=== PATIENT | female | born 1955 | race African-American/Black ===

== ENCOUNTER 2018-01-14 19:26 | Emergency (ER) | payer MEDICARE ==
[~2018-01-14] VITALS: Ht 144.8 cm; Wt 73.5 kg
[2018-01-14] MEDS ORDERED: ACETAMINOPHEN 325 MG TAB ONE (21:04)
[2018-01-14 21:09] LABS: BASOPHILS # (AUTO) 0.1 (0.0-0.1); BASOPHILS % 0.4 % (0.0-1.0); EOSINOPHILS # (AUTO) 0.1 (0.0-0.4); HEMATOCRIT 41.6 % (34.2-44.1); HEMOGLOBIN 14.2 g/dL (12.0-16.0); LYMPHOCYTES # (AUTO) 1.9 (1.0-3.2); LYMPHOCYTES % 15.1 % (18.0-39.1); MEAN CORPUSCULAR HEMOGLOBIN 30.5 pg (28-32); MEAN CORPUSCULAR HGB CONC 34.1 g/dL (31-35); MEAN CORPUSCULAR VOLUME 89.5 fL (81-99); MONOCYTES # (AUTO) 0.8 (0.2-0.8); MONOCYTES % 5.9 % (4.4-11.3); NEUTROPHILS # (AUTO) 9.9 (2.1-6.9); NEUTROPHILS % 77.1 % (38.7-80.0); PLATELET COUNT 331 x10e3/uL (140-360); RED BLOOD COUNT 4.65 x10e6/uL (3.6-5.1); RED CELL DISTRIBUTION WIDTH 11.9 % (11.7-14.4)
[2018-01-14] MEDS ORDERED: ACETAMINOPHEN 325 MG TAB PO ONE (21:15)
[2018-01-14 21:26] LABS: ALBUMIN 4.9 g/dL (3.5-5.0); ALBUMIN/GLOBULIN RATIO 1.1 (0.8-2.0); ANION GAP 17.4 mmol/L (8-16); CALCIUM 10.5 mg/dL (8.4-10.2); CREATININE, SERUM 1.16 mg/dL (0.57-1.11); POTASSIUM 3.4 mmol/L (3.5-5.1)
[2018-01-14 21:28] LABS: BILIRUBIN,URINE NEGATIVE (NEGATIVE); CLARITY,URINE CLEAR (CLEAR); COLOR,URINE YELLOW (YELLOW); KETONES,URINE NEGATIVE (NEGATIVE); LEUKOCYTE ESTERASE ,URINE NEGATIVE (NEGATIVE); NITRITE,URINE NEGATIVE (NEGATIVE); PROTEIN,URINE DIPSTICK NEGATIVE (NEGATIVE); URINE UROBILINOGEN 0.2 mg/dL (0.2 - 1)
[2018-01-14] MEDS ORDERED: ONDANSETRON HCL INJ 2 MG/ML VIAL IV STA (21:41)
[2018-01-14] MEDS ORDERED: SODIUM CHLORIDE 0.9% 1000ML 1,000 ML IV STA (21:41)
[2018-01-14 21:44] LABS: BACTERIA,URINE MODERATE /HPF; EPITHELIAL CELLS,URINE FEW /LPF
[2018-01-14 21:57] LABS: INR 1.02; PROTHROMBIN TIME 12.6 seconds (11.9-14.5)
[2018-01-14] MEDS ORDERED: DIPHENHYDRAMINE HCL INJ 1 ML ONE (21:57)
[2018-01-14 21:58] LABS: PARTIAL THROMBOPLASTIN TIME 27.9 seconds (23.8-35.5)
[2018-01-14] MEDS ORDERED: PANTOPRAZOLE 40 MG 10ML VIAL ONE (21:58)
[2018-01-14 22:05] LABS: MAGNESIUM 1.4 MG/DL (1.3-2.1)
[2018-01-14] MEDS ORDERED: PANTOPRAZOLE 40 MG 10ML VIAL IV STA (22:10)
[2018-01-14 22:11] LABS: CREATINE KINASE MB 0.6 ng/mL (0-5.0)
--- NOTE | 2018-01-14 23:33 | Diagnostic Imaging Report ---
EXAMINATION: CHEST SINGLE (PORTABLE) INDICATION: Fever. COMPARISON: None FINDINGS: TUBES and LINES: None. LUNGS: Lungs are well inflated. Lungs are clear. There is no evidence of pneumonia or pulmonary edema. PLEURA: No pleural effusion or pneumothorax. HEART AND MEDIASTINUM: The cardiomediastinal silhouette is unremarkable. BONES AND SOFT TISSUES: No acute osseous lesion. Soft tissues are unremarkable. UPPER ABDOMEN: No free air under the diaphragm. IMPRESSION: No acute thoracic abnormality. Signed by: Dr. Luis Antonio Ledezma M.D. on 01/14/2018 10:39 PM
--- NOTE | 2018-01-14 23:33 | Diagnostic Imaging Report ---
EXAMINATION: Head CT without contrast. HISTORY:Dizziness, headache and altered mental status. COMPARISON:None. TECHNIQUE: Multidetector axial images were obtained from the foramen magnum to the vertex without contrast. The images were reconstructed using brain and bone algorithms. Thin section brain images were reformatted into coronal and sagittal planes. Intravenous contrast: None IMAGE QUALITY: Acceptable. FINDINGS: Skull/scalp: No abnormality. Parenchyma: Focal hypodensity in right lentiform nucleus represents an age indeterminate lacunar infarct. Nonspecific bilateral frontoparietal patchy white matter hypodensity are likely related to small vessel ischemic changes. No acute hemorrhage, mass or acute major vascular territorial infarct. Arteries: No density suggestive of thrombosis. Dural sinuses: No abnormal density suggestive of thrombosis. Ventricles: No hydrocephalus or displacement. Extra-axial spaces: No abnormal density. Brain volume: Normal for age. Craniocervical junction: No mass, Chiari malformation, or basilar invagination. Sella: No mass. Paranasal/mastoid sinuses: Mild mucosal thickening in right sphenoid and left ethmoid sinuses. IMPRESSION: 1. 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 2. Mild supratentorial white matter microvascular ischemic changes. Signed by: Dr. Grisel Baird M.D. on 01/14/2018 10:33 PM
[2018-01-15] MEDS ORDERED: LORAZEPAM INJ 2 MG/ML VIAL IV ONE (00:15)
[2018-01-15] MEDS ORDERED: SODIUM CHLORIDE 0.9% 1000ML 1,000 ML IV STA (00:22)
[2018-01-15] MEDS ORDERED: ONDANSETRON HCL INJ 2 MG/ML VIAL IV STA (00:22)
[2018-01-15] MEDS ORDERED: MECLIZINE HCL 12.5 MG TAB PO ONE (00:30)
== END 2018-01-15 03:09 | disposition home or self-care (01) ==
LOC: ER 19:26
DX: R50.9 Fever, unspecified (principal); H81.23 Vestibular neuronitis, bilateral; B34.9 Viral infection, unspecified
CPT/HCPCS: 36415; 70450; 71045; 80053; 81001; 82550; 82553; 83518; 83735; 84484; 85025; 85610; 85730; 87040; 87070; 87400; 99284; J1200; J2405 ×2; J7030 ×2